=== PATIENT | female | born 1970 | race Caucasian/White ===

== ENCOUNTER 2020-01-04 01:29 | Inpatient (IN) | payer SELFPAY ==
[~2020-01-04] VITALS: Ht 167 cm; Wt 77.8 kg
[2020-01-04] VITALS (15 sets, daily range): BP systolic 89–116; BP diastolic 39–78
[~2020-01-04 01:29] MED LIST: FAMOTIDINE 20MG/2ML IV (PEPCID) IV ONE; ONDANSETRON 4 MG/2 ML (SDV) Z0FRAN IV ONE; PANTOPRAZOLE 40 MG (PROTONIX) VIAL IV ONE; fentaNYL INJECTION 100 MCG/2 ML AMP IV ONE
--- OUTSIDE RECORDS SUMMARY | 2020-01-04 01:36 | XMS REPORT | Continuity of Care Document ---
Author Organization Unknown Address Unknown Phone Unavailable Allergies Active Description Code Type Severity Reaction Onset Reported/Identified Relationship to Patient Clinical Status Yes adhesive [id number] Drug Allergy Unknown N/A 09/16/2019 Yes Iodinated Contrast Media [id number] Drug Allergy Unknown N/A 09/16/2019 Yes ketorolac [id number] Drug Allergy Unknown N/A 09/16/[id number] ug Allergy Unknown N/A 09/16/2019 Yes morphine [id number] Drug Allergy Unknown N/A 09/16/2019 Yes NSAIDS (Non-Steroidal Anti-Inflamma [id number] Drug Allergy Unknown N/A 09/16/2019 Yes prochlorperazine [id number] Drug Allergy Unknown N/A 09/16/2019 Yes Sulfa (Sulfonamide Antibiotics) [id number] Drug Allergy Unknown N/A 019 Yes Iodinated Contrast Media [id number] Drug Allergy Severe N/A 09/17/2019 Yes adhesive [id number] Drug Allergy Moderate N/A 09/17/2019 Yes ketorolac [id number] Drug Allergy Moderate N/A 09/17/[id number] ug Allergy Moderate N/A 09/17/2019 Yes morphine [id number] Drug Allergy Moderate N/A 09/17/2019 Yes NSAIDS (Non-Steroidal Anti-Inflamma [id number] Drug Allergy Moderate N/A 09/17/2019 Yes prochlorperazine [id number] Drug Allergy Moderate N/A 09/17/2019 Yes Sulfa (Sulfonamide Antibiotics) [id number] Drug Allergy Moderate N/A 2018 Medications There is no data. Problems There is no data. Procedures There is no data. Results Test Result Range Urine Culture, Routine - 09/16/19 21:54 Urine Culture, Routine Final report . Result - 09/16/19 21:54 Result 1 Comment . Encounters ACCT No. Visit Date/Time Discharge Status Pt. Type Provider Facility Loc./Unit Complaint [id number] 09/16/2019 22:50:00 019 17:21:00 DIS Inpatient YOVANNY MCKINLEY, [address] ACUTE UPPER GI BLEED,ANEMIA,ABD PAIN
[2020-01-04] MEDS ORDERED: HYDROmorphone 2 MG/ML VIAL (DILAUDID) IV ONE ×2 (02:23→04:00)
[2020-01-04] MEDS ORDERED: NS IV 500 ML 500 ML IV ONE (02:38)
[2020-01-04] MEDS ORDERED: LIDOCAINE 2% VISCOUS 15 ML UDC PO ONE (02:45)
[2020-01-04] MEDS ORDERED: PROMETHAZINE INJ 25 MG/ML (PHENERGAN) AMP IVP ONE (02:45)
[2020-01-04] MEDS ORDERED: ANTACID SUSP 30 ML UDC (MYLANTA) PO ONE (02:45)
[2020-01-04] MEDS ORDERED: SCOPOLAMINE 1.5 MG (TRANSDERM-SCOP) PATCH TD ONE (02:45)
[2020-01-04] MEDS ORDERED: PIPERACILLIN SODIUM/TAZOBACTAM 4.5 GM in NS (IVPB) 100 ML IV ONE (03:00)
[2020-01-04 03:04] LABS: PROTHROMBIN TIME PATIENT 13.3 SEC (12.2-14.7)
[2020-01-04 03:05] LABS: HEMATOCRIT 35 % (35-52); HEMOGLOBIN 11.1 G/DL (11.5-16.0); MEAN CORPUSCULAR HEMOGLOBIN 25 PG (25-34); WHITE BLOOD COUNT 5.9 10^3/uL (4.3-11.0)
[2020-01-04 03:06] LABS: BASOPHILS % (AUTO) 1 % (0-10); EOSINOPHILS # (AUTO) 0.1 10^3/uL (0.0-0.3); EOSINOPHILS % (AUTO) 2 % (0-10); LYMPHOCYTES # (AUTO) 1.6 X 10^3 (1.0-4.0); LYMPHOCYTES % (AUTO) 27 % (12-44); MEAN CORPUSCULAR HGB CONC 31 G/DL (32-36); MEAN CORPUSCULAR VOLUME 80 FL (80-99); MEAN PLATELET VOLUME 9.4 FL (7.4-10.4); MONOCYTES # (AUTO) 0.6 X 10^3 (0.0-1.0); MONOCYTES % (AUTO) 10 % (0-12); NEUTROPHILS # (AUTO) 3.6 X 10^3 (1.8-7.8); NEUTROPHILS % (AUTO) 61 % (42-75); PLATELET COUNT 547 10^3/uL (130-400); RED CELL DISTRIBUTION WIDTH 17.7 % (10.0-14.5)
[2020-01-04 03:07] LABS: BUN/CREATININE RATIO 18; CARBON DIOXIDE 25 MMOL/L (21-32); CHLORIDE 101 MMOL/L (98-107); CREATININE SERUM 0.74 MG/DL (0.60-1.30); GFR ESTIMATED > 60; POTASSIUM 3.2 MMOL/L (3.6-5.0); SODIUM 139 MMOL/L (135-145)
[2020-01-04 03:08] LABS: ALANINE AMINOTRANSFERASE 9 U/L (0-55); ALKALINE PHOSPHATASE 85 U/L (40-136); BILIRUBIN,TOTAL 0.2 MG/DL (0.1-1.0); CALCIUM 9.9 MG/DL (8.5-10.1); GLUCOSE 103 MG/DL (70-105); LIPASE 81 U/L (8-78); TOTAL PROTEIN 6.9 GM/DL (6.4-8.2)
--- OUTSIDE RECORDS SUMMARY | 2020-01-04 03:19 | XMS REPORT | Continuity of Care Document ---
Author Organization Unknown Address Unknown Phone Unavailable Allergies Active Description Code Type Severity Reaction Onset Reported/Identified Relationship to Patient Clinical Status Yes adhesive [id number] Drug Allergy Unknown N/A 09/16/2019 Yes Iodinated Contrast Media [id number] Drug Allergy Unknown N/A 09/16/2019 Yes ketorolac [id number] Drug Allergy Unknown N/A 09/16/[id number] ug Allergy Unknown N/A 09/16/2019 Yes morphine [id number] Drug Allergy Unknown N/A 09/16/2019 Yes NSAIDS (Non-Steroidal Anti-Inflamma [id number] Drug Allergy Unknown N/A 09/16/2019 Yes prochlorperazine [id number] Drug Allergy Unknown N/A 09/16/2019 Yes Sulfa (Sulfonamide Antibiotics) [id number] 0491 Drug Allergy Unknown N/A 019 Yes Iodinated Contrast Media [id number] Drug Allergy Severe N/A 09/17/2019 Yes adhesive [id number] Drug Allergy Moderate N/A 09/17/2019 Yes ketorolac [id number] Drug Allergy Moderate N/A 09/17/[id number] ug Allergy Moderate N/A 09/17/2019 Yes morphine [id number] Drug Allergy Moderate N/A 09/17/2019 Yes NSAIDS (Non-Steroidal Anti-Inflamma [id number] Drug Allergy Moderate N/A 09/17/2019 Yes prochlorperazine [id number] Drug Allergy Moderate N/A 09/17/2019 Yes Sulfa (Sulfonamide Antibiotics) [id number] 0491 Drug Allergy Moderate N/A 2018 Medications There is no data. Problems There is no data. Procedures There is no data. Results Test Result Range Urine Culture, Routine - 09/16/19 21:54 Urine Culture, Routine Final report . Result - 09/16/19 21:54 Result 1 Comment . Encounters ACCT No. Visit Date/Time Discharge Status Pt. Type Provider Facility Loc./Unit Complaint [id number] 09/16/2019 22:50:00 019 17:21:00 DIS Inpatient YOVANNY MCKINLEY, [address] ACUTE UPPER GI BLEED,ANEMIA,ABD PAIN
--- NOTE | 2020-01-04 03:31 | ED Abdominal Pain ---
General Chief Complaint: Abdominal/GI Problems Stated Complaint: HEMATEMESIS, UPPER ABDOMINAL PAIN Source of Information: Patient Exam Limitations: No Limitations History of Present Illness Date Seen by Provider: Jan 04, 2020 Time Seen by Provider: 00:42 Initial Comments This 49-year-old woman presents to the emergency room with severe upper abdominal pain and hematemesis that started about 4 hours ago. She had recently been visiting her father in [place] when she developed bleeding ulcers. She required hospitalization. She had cauterization therapy with endoscopy but had rebound pain and bleeding. She ultimately required an open surgery. Her impression was that the care was not very good and she had a significant language barrier that adversely impacted her care. Pain abruptly escalated and she started vomiting tonight. She denies use of blood thinning medications. She has Gitelman syndrome. Allergies and Home Medications Allergies Coded Allergies: Iodinated Contrast Media (Verified Allergy, Unknown, Hives, 01/04/20) NSAIDS (Non-Steroidal Anti-Inflamma (Verified Allergy, Unknown, Bleeding, 01/04/20) Sulfa (Sulfonamide Antibiotics) (Verified Allergy, Unknown, Rash, 01/04/20) adhesive (Verified Allergy, Unknown, Rash, 01/04/20) ketorolac (Verified Allergy, Unknown, Rash, 01/04/20) metoclopramide (Verified Adverse Reaction, Unknown, Anxiety and Panic, 01/04/20) morphine (Verified Adverse Reaction, Unknown, Vomiting, 01/04/20) prochlorperazine (Verified Adverse Reaction, Unknown, Anxiety and panic, 01/04/20) Patient Home Medication List Home Medication List Reviewed: Yes Review of Systems Review of Systems Constitutional: no symptoms reported EENTM: No Symptoms Reported Respiratory: No Symptoms Reported Cardiovascular: No Symptoms Reported Gastrointestinal: See HPI Genitourinary: See HPI Musculoskeletal: no symptoms reported Skin: no symptoms reported Psychiatric/Neurological: No Symptoms Reported Endocrine: No Symptoms Reported Hematologic/Lymphatic: See HPI Past Rcoebme-Rrwubf-Uygdlw Hx Past Med/Social Hx: Reviewed and Corrections made Patient Social History Recent Foreign Travel: Yes ([place]) Contact w/Someone Who Travel: Yes ([place]) Past Medical History Surgeries: Yes Abdominal (gastric ulcer repair and endoscopies), Gallbladder, Vascular Surgery (IVC filter) Respiratory: Yes Pulmonary Embolism (2011) Cardiac: No Neurological: Yes Stroke (2006) : No Genitourinary: Yes (Gitelman syndrome) Gastrointestinal: Yes Gastrointestinal Bleed (bleeding gastric ulcers), Ulcer, Gall Bladder Disease Musculoskeletal: No Endocrine: No HEENT: No Cancer: No Psychosocial: Yes Depression Physical Exam Vital Signs Capillary Refill : Height/Weight/BMI Height: '" Weight: lbs. oz. kg; BMI Method: General Appearance: WD/WN, moderate distress HEENT: PERRL/EOMI, normal ENT inspection, pharynx normal Neck: normal inspection Respiratory: lungs clear, normal breath sounds, no respiratory distress, no accessory muscle use Cardiovascular: regular rate, rhythm, no edema, no murmur Gastrointestinal: normal bowel sounds, soft, tenderness (moderate to severe tenderness in the left upper quadrant) Extremities: normal inspection, no pedal edema Neurologic/Psychiatric: designated broker II-XII nml as tested, no motor/sensory deficits, alert, normal mood/affect, oriented x 3 Skin: normal color, warm/dry Progress/Results/Core Measures Results/Orders Lab Results Laboratory Tests Test 01/04/20 01:20 Range/Units White Blood Count 5.9 4.3-11.0 10^3/uL Red Blood Count 4.43 4.35-5.85 10^6/uL Hemoglobin 11.1 L 11.5-16.0 G/DL Hematocrit 35 35-52 % Mean Corpuscular Volume 80 80-99 FL Mean Corpuscular Hemoglobin 25 25-34 PG Mean Corpuscular Hemoglobin Concent 31 L 32-36 G/DL Red Cell Distribution Width 17.7 H 10.0-14.5 % Platelet Count 547 H 130-400 10^3/uL Mean Platelet Volume 9.4 7.4-10.4 FL Neutrophils (%) (Auto) 61 42-75 % Lymphocytes (%) (Auto) 27 12-44 % Monocytes (%) (Auto) 10 0-12 % Eosinophils (%) (Auto) 2 0-10 % Basophils (%) (Auto) 1 0-10 % Neutrophils # (Auto) 3.6 1.8-7.8 X 10^3 Lymphocytes # (Auto) 1.6 1.0-4.0 X 10^3 Monocytes # (Auto) 0.6 0.0-1.0 X 10^3 Eosinophils # (Auto) 0.1 0.0-0.3 10^3/uL Basophils # (Auto) 0.0 0.0-0.1 10^3/uL Prothrombin Time 13.3 12.2-14.7 SEC INR Comment 1.0 0.8-1.4 Activated Partial Thromboplast Time 38 H 24-35 SEC Sodium Level 139 135-145 MMOL/L Potassium Level 3.2 L 3.6-5.0 MMOL/L Chloride Level 101 98-107 MMOL/L Carbon Dioxide Level 25 21-32 MMOL/L Anion Gap 13 5-14 MMOL/L Blood Urea Nitrogen 13 7-18 MG/DL Creatinine 0.74 0.60-1.30 MG/DL Estimat Glomerular Filtration Rate > 60 BUN/Creatinine Ratio 18 Glucose Level 103 70-105 MG/DL Calcium Level 9.9 8.5-10.1 MG/DL Corrected Calcium 9.9 8.5-10.1 MG/DL Total Bilirubin 0.2 0.1-1.0 MG/DL Aspartate Amino Transf (AST/SGOT) 12 5-34 U/L Alanine Aminotransferase (ALT/SGPT) 9 0-55 U/L Alkaline Phosphatase 85 40-136 U/L Total Protein 6.9 6.4-8.2 GM/DL Albumin 4.0 3.2-4.5 GM/DL Lipase 81 H 8-78 U/L Serum Test, Qualitative NEGATIVE NEGATIVE My Orders Kaylan - ALEXANDRA MONTALVO MD Ct Abdomen/Pelvis Wo (01/04/20 ) Scopolamine Patch (Transderm-Scop Patch) (01/04/20 02:45) Lidocaine 2% Viscous 15 Ml (Xylocaine Vi (01/04/20 02:45) Antacid Suspension (Mylanta Suspension (01/04/20 02:45) Promethazine Injection (Phenergan Injec (01/04/20 02:45) Ns Iv 500 Ml (Sodium Chloride 0.9%) (01/04/20 02:38) Cbc With Automated Diff (01/04/20 02:47) Comprehensive Metabolic Panel (01/04/20 02:47) Hcg,Qualitative Serum (01/04/20 02:47) Lipase (01/04/20 02:47) Protime With Inr (01/04/20 02:47) Partial Thromboplastin Time (01/04/20 02:47) Ua Culture If Indicated (01/04/20 02:47) Red Cells Leukocytes Reduced (01/04/20 02:47) Type And Screen (01/04/20 02:47) Piperacillin Sodium/Tazobactam (Zosyn Vi (01/04/20 03:00) Medications Given in ED Current Medications Medications Dose Ordered Sig/Robbie Route Start Time Stop Time Status Last Admin Dose Admin Al Hydrox/Mg Hydrox/Simethicone 30 ml ONCE ONCE PO 01/04/20 02:45 01/04/20 02:46 DC 01/04/20 03:27 30 ML Lidocaine HCl 15 ml ONCE ONCE PO 01/04/20 02:45 01/04/20 02:46 DC 01/04/20 03:28 15 ML Piperacillin Sod/ Tazobactam Sod 4.5 gm/Sodium Chloride 100 ml @ 200 mls/hr ONCE ONCE IV 01/04/20 03:00 01/04/20 03:29 DC 01/04/20 03:28 200 MLS/HR Promethazine HCl 25 mg ONCE ONCE IVP 01/04/20 02:45 01/04/20 02:46 DC 01/04/20 02:57 25 MG Sodium Chloride 500 ml @ 0 mls/hr Q0M ONCE IV 01/04/20 02:38 01/04/20 02:40 DC 01/04/20 02:58 999 MLS/HR Progress Progress Note : Progress Note Patient seen and examined. Labs were reviewed. She is not yet significantly anemic. She has had a few episodes of bloody emesis, probably less than 100 mL. She was treated with Protonix 80 mg, Pepcid 20 mg, and Zofran. She was given Phenergan and a 500 mL normal saline bolus for rebound nausea. We are trialing a GI cocktail as well. 2 units of blood are being crossmatched on reserve because of continued bleeding. Case was discussed with Dr. Smith who recommended a clear liquid diet, Carafate, and a Protonix drip. She will be admitted to the ICU for the morning for close monitoring. CT suggested colitis. Zosyn was ordered as a precaution based on that finding. Fentanyl was initially used for pain. Dilaudid was given for rebound pain. Patient states Dilaudid does not give her headache like fentanyl does. Diagnostic Imaging Diagonstic Imaging: CT Plain Films/CT/US/NM/MRI: abdomen, pelvis Comments CT abdomen and pelvis viewed by me and report from stat rad reviewed. Findings are suspicious for colitis or infectious inflammatory etiology. No other complicating factors. No free air to indicate perforation. Departure Communication (Admissions) Time/Spoke to Admitting Phy: 02:25 Dr. Smith Impression Primary Impression: Hematemesis Qualified Codes: K92.0 - Hematemesis Additional Impressions: Left upper quadrant pain Colitis Disposition: ADMITTED INPATIENT Condition: Stable Admissions Decision to Admit Reason: Admit from ER (General) Decision to Admit/Date: Jan 04, 2020 Time/Decision to Admit Time: 01:00 Departure-Patient Inst. Referrals: NO,LOCAL PHYSICIAN (PCP/Family) Primary Care Physician ALEXANDRA MONTALVO MD Jan 04, 2020 03:31
[2020-01-04] MEDS ORDERED: LACTATED RINGERS 1,000 ML IV SCH (04:30)
[2020-01-04] MEDS ORDERED: PANTOPRAZOLE DRIP 200 MG/NS 100 ML IV SCH ×2 (04:30)
[2020-01-04 04:41] LABS: MAGNESIUM 1.2 MG/DL (1.6-2.4)
[2020-01-04] MEDS: HYDROmorphone 2 MG/ML VIAL (DILAUDID) IV PRN ×5 (05:02→11:34)
[2020-01-04] MEDS: ONDANSETRON 4 MG/2 ML (SDV) Z0FRAN IV PRN ×3 (05:02→15:18)
[2020-01-04] MEDS ORDERED: MAGNESIUM 1 GM/100 ML IVPB 200 ML IV ONE (05:42)
[2020-01-04] MEDS ORDERED: POTASSIUM CL 10MEQ/50ML IVPB 100 ML IV ONE ×2 (05:42→05:46)
[2020-01-04] MEDS: MAGNESIUM 1 GM/100 ML IVPB 100 ML IV SCH ×2 (05:55→06:56)
[2020-01-04] MEDS ORDERED: POTASSIUM CL 10MEQ/50ML IVPB 50 ML IV SCH (06:00)
[2020-01-04] MEDS ORDERED: KCL 20 MEQ TAB (K-DUR) PO SCH (06:00)
[2020-01-04] MEDS ORDERED: MAGNESIUM 1 GM/100 ML IVPB 100 ML IV SCH (06:00)
[2020-01-04] MEDS: POTASSIUM CL 10MEQ/50ML IVPB 50 ML IV SCH ×3 (06:05→06:56)
--- NOTE | 2020-01-04 06:16 | Diagnostic Imaging Report ---
PROCEDURE: CT abdomen and pelvis without contrast. TECHNIQUE: Multiple contiguous axial images were obtained through the abdomen and pelvis without the use of intravenous contrast. Auto Exposure Controls were utilized during the CT exam to meet ALARA standards for radiation dose reduction. INDICATION: Abdominal pain with nausea and vomiting. No prior examinations are available for comparison. FINDINGS: The heart size is normal. The lung bases are clear. Liver is normal in size without focal lesions. Gallbladder surgically absent. There is no biliary duct dilatation. The spleen is unremarkable. Pancreas and adrenal glands are unremarkable. There are homogeneously hyperdense round lesions in the kidneys bilaterally, likely reflecting hemorrhagic cysts. There is no evidence of nephrolithiasis or obstructive uropathy. IVC filter in place. Aorta is nonaneurysmal. Bowel gas pattern is nonspecific. There are areas of mucosal thickening in the descending colon and sigmoid colon suspect for colitis. There is no free air. There is no pelvic mass, adenopathy or free fluid. There are degenerative changes in the spine. IMPRESSION: Findings suspect for colitis either infectious or inflammatory involving the descending colon and sigmoid colon. Hyperdense renal lesions likely hemorrhagic cysts. This could be confirmed with ultrasound. No other acute abnormality in the abdomen or pelvis. Dictated by: Dictated on workstation # [id number]
--- NOTE | 2020-01-04 06:37 | NUR ---
PT HAS LEFT CHEST POWER PORT, ACCESSED BY ER. IV PROTONIX DRIP NOT COMPATIBLE WITH ZOSYN AND MAGNESIUM. THIS RN ATTEMPTED 2ND IV LINE. ATTEMPT WAS UNSUCCESSFUL. PT STATES "NOBODY WILL BE ABLE TO GET ME. I AM AN IMPOSSIBLE STICK." THIS RN NOTIFIED K[facility]O OF INCOMPATIBILITY OF IV MEDS AND LACK OF IV ACCESS. ORDERS TO CHANGE PROTONIX DRIP TO 40MG PROTONIX BID IVP.
[2020-01-04] MEDS ORDERED: diphenhydrAMINE 50 MG/ML INJ (BENADRYL) ONE (06:40)
[2020-01-04] MEDS: diphenhydrAMINE 50 MG/ML INJ (BENADRYL) IVP PRN ×4 (06:47→20:38)
[2020-01-04] MEDS: FAMOTIDINE 20MG/2ML IV (PEPCID) IV SCH ×2 (08:13→20:28)
[2020-01-04] MEDS: SUCRALFATE 1 GM (CARAFATE) TAB PO SCH ×4 (08:13→20:21)
[2020-01-04] MEDS: PANTOPRAZOLE 40 MG (PROTONIX) VIAL IV SCH ×2 (08:13→20:27)
[2020-01-04] MEDS ORDERED: PIPERACILLIN/TAZO 4.5 GM/NS 100 ML IV SCH ×2 (09:00)
--- NOTE | 2020-01-04 10:05 | NUR ---
NEW TELEPHONE ORDERS RECEIVED FROM DR AWRD, ALL ORDERS READ BACK AND VERIFIED.
--- NOTE | 2020-01-04 11:13 | Consultation - Hospitalist ---
HPI History of Present Illness: HPI/Chief Complaint Pt is a 49yoCF with a PMH of Gitelman Syndrome who presented to the ER due to hematemesis. She reports that she was just in [place] to visit her dad. She states she flew down to [place] on 12/23 and then drove [place] the border with her aunt and uncle. They drove back roughly 1 week ago. While she was in [place] she developed hematemesis there and underwent open abdominal surgery for what sounds like peptic ulcer disease. This was roughly 1 week ago (4 days before they drove back). She states her incision is healing well and she had been feeling better and staying with her aunt and uncle because she has felt too fatigued to drive back. She also complains of loose stools. Last night she vomited up 1-1.5 cups per her report of blood and developed severe abdominal pain prompting her to see care in the ER. CT scan was done which revealed colitis. She was admitted to surgery and I am consulted for medical management. She denies any respiratory symptoms or fever. Of note she has a history in 2006 of surgery for achalasia that resulted in j tube placement for enteral feeds, 1 year long hospital stay and ~100lb weight loss. She has since graduated from her J-tube and is on Keppra for vagal nerve dysfunction and normally maintains her own nutrition orally. Source: patient Exam Limitations: no limitations Date Seen 01/04/20 Attending Physician Goldy Smith MD PCP No,Local Physician Referring Physician Dr Smith Date of Admission Jan 04, 2020 at 03:15 Home Medications & Allergies Home Medications Reviewed patient Home Medication Reconciliation performed by pharmacy medication reconciliations optical coating technician and/or nursing. Patients Allergies have been reviewed. Allergies Allergies Coded Allergies Iodinated Contrast Media (Verified Allergy, Unknown, Hives, 01/04/20) NSAIDS (Non-Steroidal Anti-Inflamma (Verified Allergy, Unknown, Bleeding, 01/04/20) Sulfa (Sulfonamide Antibiotics) (Verified Allergy, Unknown, Rash, 01/04/20) adhesive (Verified Allergy, Unknown, Rash, 01/04/20) ketorolac (Verified Allergy, Unknown, Rash, 01/04/20) metoclopramide (Verified Adverse Reaction, Unknown, Anxiety and Panic, 01/04/20) morphine (Verified Adverse Reaction, Unknown, Vomiting, 01/04/20) prochlorperazine (Verified Adverse Reaction, Unknown, Anxiety and panic, 01/04/20) Past Ywivbbc-Nchwxm-Ewpcno Hx Past Med/Social Hx: Reviewed and Corrections made Patient Social History Alcohol Use: Denies Use Recreational Drug Use: No Smoking Status: Never a Smoker Recent Foreign Travel: Yes ([place]) Contact w/other who traveled: Yes ([place]) Recent Hopitalizations: Yes ([place]- 12-26-19) Recent Infectious Disease Expo: No Immunizations Up To Date Tetanus Booster (TDap): Unknown Pediatric: Yes Date of Influenza Vaccine: Jul 08, 2019 Past Medical History Surgeries: Abdominal (gastric ulcer repair and endoscopies), Gallbladder, Vascular Surgery (IVC filter) Neurological: Stroke (2006) : No Genitourinary: Kidney Stones Gastrointestinal: Gastrointestinal Bleed (bleeding gastric ulcers), Ulcer, Gall Bladder Disease Psychosocial: Depression Review of Systems Constitutional: No chills, No fever; malaise EENTM: no symptoms reported Respiratory: No cough, No short of breath Cardiovascular: No chest pain, No edema, No palpitations Gastrointestinal: abdominal pain, diarrhea, hematemesis, nausea, vomiting Genitourinary: no symptoms reported Musculoskeletal: no symptoms reported Skin: no symptoms reported Psychiatric/Neurological: No Symptoms Reported Physical Exam Physical Exam Vital Signs Vital Signs - First Documented 01/04/20 01:29 Temp 36.9 Pulse 114 Resp 20 B/P (MAP) 105/80 (88) Pulse Ox 98 O2 Delivery Room Air Capillary Refill : Less Than 3 Seconds Height, Weight, BMI Height: '" Weight: lbs. oz. kg; 28.00 BMI Method: General Appearance: No Apparent Distress, WD/WN HEENT: PERRL/EOMI, Moist Mucous Membranes; No Scleral Icterus (L), No Scleral Icterus (R) Neck: Normal Inspection, Supple Respiratory: Lungs Clear, No Accessory Muscle Use, No Respiratory Distress Cardiovascular: Regular Rate, Rhythm, No Murmur Gastrointestinal: Normal Bowel Sounds, Non Tender, Soft; No Distended, No Guarding, No Rebound Extremity: Normal Capillary Refill, No Calf Tenderness, No Pedal Edema Neurologic/Psychiatric: Alert, Oriented x3, Normal Mood/Affect Skin: Normal Color, Warm/Dry, Tattoos/Piercings Results Results/Procedures Labs Laboratory Tests 01/04/20 01:20 Patient resulted labs reviewed. Imaging: Reviewed Imaging Report Imaging Date of Exam:01/04/20 CT ABDOMEN/PELVIS WO PROCEDURE: CT abdomen and pelvis without contrast. TECHNIQUE: Multiple contiguous axial images were obtained through the abdomen and pelvis without the use of intravenous contrast. Auto Exposure Controls were utilized during the CT exam to meet ALARA standards for radiation dose reduction. INDICATION: Abdominal pain with nausea and vomiting. No prior examinations are available for comparison. FINDINGS: The heart size is normal. The lung bases are clear. Liver is normal in size without focal lesions. Gallbladder surgically absent. There is no biliary duct dilatation. The spleen is unremarkable. Pancreas and adrenal glands are unremarkable. There are homogeneously hyperdense round lesions in the kidneys bilaterally, likely reflecting hemorrhagic cysts. There is no evidence of nephrolithiasis or obstructive uropathy. IVC filter in place. Aorta is nonaneurysmal. Bowel gas pattern is nonspecific. There are areas of mucosal thickening in the descending colon and sigmoid colon suspect for colitis. There is no free air. There is no pelvic mass, adenopathy or free fluid. There are degenerative changes in the spine. IMPRESSION: Findings suspect for colitis either infectious or inflammatory involving the descending colon and sigmoid colon. Hyperdense renal lesions likely hemorrhagic cysts. This could be confirmed with ultrasound. Assessment/Plan Assessment and Plan Assess & Plan/Chief Complaint Colitis Hematemesis Management per primary Continue serial H/H Continue abx Dilaudid for pain c diff pending CLD LR at 125ml/hr Protonix, Famotidine, and Carafate Gitelman Syndrome Hypokalemia Hypomagnesemia Continue potassium replacement Resume home meds when able to tolerate a diet better Travel history COVID testing pending Clinical Quality Measures DVT/VTE Risk/Contraindication: Risk Factor Score Per Nursin RFS Level Per Nursing on Admit: 4+=Very High ADAMS LOPEZ MD Jan 04, 2020 11:13
[2020-01-04] MEDS ORDERED: HYDROcodone/APAP 7.5 MG/325 MG (LORTAB, LORCET PLUS) TABLET PO PRN ×2 (11:45→16:45)
--- NOTE | 2020-01-04 12:16 | HISTORY AND PHYSICAL ---
DATE OF SERVICE: HISTORY OF PRESENT ILLNESS: The patient is a 49-year-old female, who presented to the Emergency Department with left upper abdominal quadrant pain as well as nausea and vomiting and noticing blood in her emesis. She has a long history of first encompassing a recent trip to [place] to visit her father, who lives on the [facility]. She initially flew from her residence an hour away from [place] to [place] and drilled from [place] to [place]. She reports that she developed a significant hematemesis in [place] and underwent surgery for what sounds to be a bleeding gastric ulcer. She reports that she has had a longstanding history of peptic ulcer disease and has been on different acid reduction medications in the past. She has also had previous EGDs and states that she has been tested for H. pylori, which has been negative. She also reports a history of achalasia and underwent a laparoscopic Heller myotomy as well as a partial fundoplication. She is not 100% sure of what type of surgery they did in [place]; however, states that she was admitted for approximately five days and she does have an upper midline laparotomy incision and it appears that she did have a gastrotomy resection of bleeder and oversewing. Upon admission, she did have pain in the left upper abdominal quadrant. 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 Hemoglobin has also been stable. CT scan was reviewed and it appears that she does have proximal descending colonic colitis, most likely secondary from her recent travels as well as previous antibiotics during her surgery in [place] and we will treat her empirically for Clostridium difficile as well as other bacterial overgrowth. PAST MEDICAL HISTORY: Gitelman syndrome, GI peptic ulcer disease, history of achalasia. History of PE. PAST SURGICAL HISTORY: Laparoscopic Heller myotomy and partial wrap, IVC filter placement, laparotomy, gastrotomy and hemostatic control. ALLERGIES: IODINATED CONTRAST and SULFA, ADHESIVE TAPE, KETOROLAC, METOCLOPRAMIDE, MORPHINE and PROCHLORPERAZINE. MEDICATIONS: None. SOCIAL HISTORY: Negative smoking and negative alcohol. FAMILY HISTORY: Noncontributory. REVIEW OF SYSTEMS: This is a well-nourished female currently in no acute distress. She is not experiencing any shortness of breath or difficulty breathing. No chest pain, palpitations or diaphoresis. Intermittent episodes of nausea, no vomiting and tolerating clear liquid diet. She did have loose bowel movement earlier today. No red blood per rectum and no dark tarry stools. No fever, chills, no recent inadvertent weight loss. All other review of systems are negative. PHYSICAL EXAMINATION: VITAL SIGNS: Temperature 36.3, blood pressure 116/78, pulse 91, respirations 17 and pulse ox 97% on room air. CHEST: Clear. Good breath sounds bilaterally. HEART: Regular and no murmurs. EXTREMITIES: No lower extremity edema, negative Homans sign. HEENT: No scleral icterus. NECK: No cervical lymphadenopathy. ABDOMEN: Soft and nondistended. There is pain in the left upper abdominal quadrant. There were no palpable masses. The wound looks clean, dry and intact with no hernias. SKIN: Warm and dry. LABORATORY DATA: WBC 5.9, hemoglobin 11.1, hematocrit 35 and platelets 547. ASSESSMENT AND PLAN: A 49-year-old female with colitis, most likely secondary to bacterial overgrowth from previous laparotomy, gastrotomy and bleeding oversewn as well as recent travel. We will send her stool for Clostridium difficile; however, empirically treated with ciprofloxacin as well as Flagyl 500 mg on a t.i.d. basis. When she has adequate pain control, tolerating diet, we will discharge her home and have her follow up with her primary care physician. Job ID: [id number] DocumentID: [id number] Dictated Date: 01/04/2020 12:01:26 Outside Contractor Sales Date: 01/04/2020 12:15:49 Dictated By: MARGOTH WARD MD
[2020-01-04] MEDS: metroNIDAZOLE 500 MG (FLAGYL) TAB PO SCH ×2 (13:10→20:21)
[2020-01-04] MEDS ORDERED: HYDROmorphone 2 MG/ML VIAL (DILAUDID) IV PRN (13:15)
[2020-01-04] MEDS: PROMETHAZINE INJ 25 MG/ML (PHENERGAN) AMP IV PRN (13:30)
--- NOTE | 2020-01-04 13:43 | NUR ---
LORTAB PULLED AND NOT GIVEN PT HAD APPROXIMATELY 50 ML OF BLOODY EMESIS. LORTAB WASTED IN PROPER CONTAINER AND WITNESSED BY Agus BELL RN.
--- NOTE | 2020-01-04 14:18 | NUR ---
RECEIVED FROM ICU, ALERT, ORIENTED TO ROOM, INSTRUCTED ON ISOLATION, CALL LIGHT WITHIN REACH, [place] WITHOUT REDNESS OR SWELLING, DENIES SOB, AFEBRILE, PATIENT C/O NAUSEA. AND ABD PAIN, ABD SOFT, BOWEL SOUNDS PRESENT
--- NOTE | 2020-01-04 14:42 | NUR ---
1415 PT TRANSFERRED TO ROOM 432 VIA WC ACCOMPANIED BY ALLA RN AND Agus BOYER RN. ALL PPE TRANSFERRED TO ROOM ALONG WITH ALL PERSONAL BELONGINGS. REPORT GIVEN TO JD PRIOR TO TRANSFER.
--- NOTE | 2020-01-04 16:24 | NUR ---
PATIENT STATES DILAUDID EVERY FOURS HOURS DOES NOT CONTROL HER PAIN, PATIENT VOMITED RED COLOR EMESIS AND VOMITED UP THE LORTABS GIVEN EARLIER, DR WARD NOTIFIED.
[2020-01-04] MEDS: HYDROmorphone 2 MG/ML VIAL (DILAUDID) IVP PRN ×2 (17:00→20:36)
[2020-01-04] MEDS: CIPROFLOXACIN IV 400MG/200ML 200 ML IV SCH (20:21)
[2020-01-05] MEDS: HYDROmorphone 2 MG/ML VIAL (DILAUDID) IVP PRN ×6 (00:18→21:32)
[2020-01-05] MEDS: PROMETHAZINE INJ 25 MG/ML (PHENERGAN) AMP IV PRN ×2 (00:18→21:32)
[2020-01-05 00:19] VITALS: BP 120/75
[2020-01-05 04:00] VITALS: BP 118/74
[2020-01-05] MEDS: diphenhydrAMINE 50 MG/ML INJ (BENADRYL) IVP PRN ×3 (04:19→14:12)
[2020-01-05 04:55] LABS: BUN/CREATININE RATIO 12; CALCIUM 7.5 MG/DL (8.5-10.1); CARBON DIOXIDE 26 MMOL/L (21-32); CHLORIDE 105 MMOL/L (98-107); CREATININE SERUM 0.66 MG/DL (0.60-1.30); GFR ESTIMATED > 60; GLUCOSE 91 MG/DL (70-105); SODIUM 141 MMOL/L (135-145)
[2020-01-05 05:07] LABS: BASOPHILS % (AUTO) 1 % (0-10); EOSINOPHILS # (AUTO) 0.2 10^3/uL (0.0-0.3); EOSINOPHILS % (AUTO) 5 % (0-10); HEMATOCRIT 28 % (35-52); HEMOGLOBIN 8.6 G/DL (11.5-16.0); LYMPHOCYTES % (AUTO) 25 % (12-44); MEAN CORPUSCULAR HEMOGLOBIN 25 PG (25-34); MEAN CORPUSCULAR HGB CONC 31 G/DL (32-36); MEAN CORPUSCULAR VOLUME 83 FL (80-99); MEAN PLATELET VOLUME 9.5 FL (7.4-10.4); MONOCYTES # (AUTO) 0.6 X 10^3 (0.0-1.0); MONOCYTES % (AUTO) 14 % (0-12); NEUTROPHILS # (AUTO) 2.3 X 10^3 (1.8-7.8); NEUTROPHILS % (AUTO) 55 % (42-75); PLATELET COUNT 305 10^3/uL (130-400); RED CELL DISTRIBUTION WIDTH 17.6 % (10.0-14.5); WHITE BLOOD COUNT 4.2 10^3/uL (4.3-11.0)
[2020-01-05] MEDS: CIPROFLOXACIN IV 400MG/200ML 200 ML IV SCH ×2 (09:30→20:22)
[2020-01-05] MEDS: PANTOPRAZOLE 40 MG (PROTONIX) VIAL IV SCH ×2 (09:30→20:22)
[2020-01-05] MEDS: metroNIDAZOLE 500 MG (FLAGYL) TAB PO SCH ×3 (09:31→20:22)
[2020-01-05] MEDS: SUCRALFATE 1 GM (CARAFATE) TAB PO SCH ×4 (09:37→20:22)
[2020-01-05] MEDS: FAMOTIDINE 20MG/2ML IV (PEPCID) IV SCH ×2 (09:37→20:21)
[2020-01-05 09:53] VITALS: BP 101/66
[2020-01-05] MEDS ORDERED: KCL 20 MEQ TAB (K-DUR) PO NR (10:00)
[2020-01-05] MEDS ORDERED: NS IV 1000 ML 1,000 ML ONE (10:46)
[2020-01-05] MEDS ORDERED: NS IV 1000 ML 1,000 ML IV ONE (11:00)
[2020-01-05] MEDS: MAGNESIUM 1 GM/100 ML IVPB 100 ML IV SCH ×6 (11:06→16:16)
[2020-01-05] MEDS: POTASSIUM CL 10MEQ/50ML IVPB 50 ML IV SCH ×8 (11:07→18:20)
--- NOTE | 2020-01-05 11:38 | Progress Note - Hospitalist ---
Subjective HPI/CC On Admission Date Seen by Provider: Jan 05, 2020 Time Seen by Provider: 08:40 Pt is a 49yoCF with a PMH of Gitelman Syndrome who presented to the ER due to hematemesis. She reports that she was just in [place] to visit her dad. She states she flew down to [place] on 12/23 and then drove across the border with her aunt and uncle. They drove back roughly 1 week ago. While she was in [place] she developed hematemesis there and underwent open abdominal surgery for what sounds like peptic ulcer disease. This was roughly 1 week ago (4 days before they drove back). She states her incision is healing well and she had been feeling better and staying with her aunt and uncle because she has felt too fatigued to drive back. She also complains of loose stools. Last night she vomited up 1-1.5 cups per her report of blood and developed severe abdominal pain prompting her to see care in the ER. CT scan was done which revealed colitis. She was admitted to surgery and I am consulted for medical management. She denies any respiratory symptoms or fever. Of note she has a history in 2006 of surgery for achalasia that resulted in j tube placement for enteral feeds, 1 year long hospital stay and ~100lb weight loss. She has since graduated from her J-tube and is on Keppra for vagal nerve dysfunction and normally maintains her own nutrition orally. Subjective/Events-last exam She continues to nausea. She denies any vomiting. She is also having abdominal pain. She denies any fevers or chills. She denies any cough. She denies any shortness of breath. She is not having any chest pain. Objective Exam Vital Signs Vital Signs Date Time Temp Pulse Resp B/P (MAP) Pulse Ox O2 Delivery O2 Flow Rate FiO2 01/05/20 09:53 36.2 81 20 101/66 (78) 100 Room Air Capillary Refill : Less Than 3 SecondsLess Than 3 Seconds General Appearance: No Apparent Distress, WD/WN Respiratory: Lungs Clear, Normal Breath Sounds, No Respiratory Distress Cardiovascular: Regular Rate, Rhythm, No Edema, No Murmur Gastrointestinal: Soft, Abnormal Bowel Sounds (Diminished), Tenderness (Left upper quadrant), Other (Midline incision from recent surgery appears to be well- healing) Extremity: Normal Inspection, Non Tender, No Pedal Edema Neurologic/Psychiatric: Alert, Oriented x3, No Motor/Sensory Deficits, Normal Mood/Affect Skin: Normal Color, Warm/Dry Results/Procedures Lab Laboratory Tests 01/05/20 04:15 Patient resulted labs reviewed. Imaging: Reviewed Imaging Report Assessment/Plan Assessment and Plan Assess & Plan/Chief Complaint Colitis Hematemesis Management per primary Continue to monitor hemoglobin Continue antibiotics Pain regimen ordered CLD Protonix, Famotidine, and Carafate Gitelman Syndrome Hypokalemia Hypomagnesemia Continue to monitor and replace electrolytes as needed Travel history COVID testing pending Diagnosis/Problems Diagnosis/Problems (1) Hematemesis Status: Acute Qualifiers: Nausea presence: with nausea Qualified Codes: K92.0 - Hematemesis (2) Recent foreign travel Status: Acute (3) Gitelman syndrome Status: Chronic Clinical Quality Measures DVT/VTE Risk/Contraindication: Risk Factor Score Per Nursin RFS Level Per Nursing on Admit: 4+=Very High ASHLEY ABRAMS MD Jan 05, 2020 11:38
[2020-01-05 12:04] VITALS: BP 99/62
[2020-01-05] MEDS: ONDANSETRON 4 MG/2 ML (SDV) Z0FRAN IV PRN ×2 (13:08→20:21)
[2020-01-05] MEDS ORDERED: CHOL100048 PO (15:10)
[2020-01-05] MEDS ORDERED: FAMO40TA72 PO (15:10)
[2020-01-05] MEDS ORDERED: CALC-823 PO (15:10)
[2020-01-05] MEDS ORDERED: MAGN400T39 PO (15:10)
[2020-01-05] MEDS ORDERED: CYAN50008 PO (15:10)
[2020-01-05] MEDS ORDERED: FERR-84 PO (15:10)
--- NOTE | 2020-01-05 15:11 | NUR ---
SPOKE WITH PT TO COMPLETE THE MED REC. I FIRST CALLED THE PT WHEN SHE WAS IN ISOLATION TO FIND OUT ABOUT HER MEDICATIONS- SHE STATED SHE HAD ALREADY GIVEN THIS LIST TO SOMEONE. I TOLD HER I WOULD CHECK AND GET BACK WITH HER- I ALSO INQUIRED ABOUT THE PHARMACY SHE USES. I WAS TOLD THE PHARM SHE USES SHUT DOWN AND I WOULDNT BE ABLE TO CONTACT THEM. WHILE TRYING TO LOCATE A LIST (I NEVER FOUND ONE) SHE WAS RELEASED FROM [place] AND I WAS ABLE TO GO SPEAK WITH HER. SHE FOUND A LIST IN HER PURSE THAT LISTED MEDICATIONS. I ONCE AGAIN ASKED ABOUT A PHARMACY THAT SHE USES (SHE SAYS THE NAME IS [facility] IN [place], [place]), BUT SHE SAYS THE [employer] AND THERE ARE NO RECORDS. I EXPLAINED THAT I STILL SHOULD BE ABLE TO GET INFORMATION ABOUT THE PHARMACY AND THEY HAVE TO DO SOMETHING WITH THEIR RECORDS EVEN IF THEY SHUT DOWN- PT JUST KEPT SAYING SHE DIDNT KNOW AND SAYING SHE ONCE GOT SAMPLE OF HER MEDS AND THAT MUST HAVE LASTED HER. I THEN ASKED IF SHE HAD A PHONE NUMBER FOR THE PHARMACY AND SHE WAS UNABLE TO PRODUCE ONE (AND SAID IT WOULDNT MATTER SINCE ITS SHUT DOWN). WHEN I TRIED TO SEE IF I COULD GET AN ADDRESS OR WHAT STREET IT WAS ON- PT SAID SHE DIDNT KNOW AND THAT IT WAS ON A SIDE STRE[address]. I ASKED WHO HER PCP WAS OR WHO PRESCRIBED HER MEDICATIONS AND SHE SAID SHE DIDNT HAVE A DR AND WASNT SURE WHO WROTE THE RX'S. I THEN CALLED MULTIPLE PHARMACIES AROUND [facility] AND [place] TO SEE IF I COULD GET INFORMATION ABOUT "[facility]" AND ALL THE PHARMACIES WERE UNABLE TO GIVE ME ANY INFO AND SAY THEY HAVE NEVER HEARD OF IT. DUE TO THESE REASONS I HAVE LEFT ALL THE PRESCRIPTION MEDICATION OFF THE MED REC SINCE I CANNOT VERIFY ANY OF IT. THE FOLLOWING MEDS ARE WHAT SHE HAD LISTED: POTASSIUM ER 40MEQ BID ZOLOFT 150MG 1 HS CARAFATE 1 GM 1 TID ATIVAN PRN KEPPRA 1000MG 1 BID OTC MEDS I DID INCLUDE: CALCIUM VIT B12 IRON MAGNESIUM VITAMIN D3 PEPCID
[2020-01-05 16:00] VITALS: BP 97/52
[2020-01-05 19:43] VITALS: BP 112/58
--- NOTE | 2020-01-06 00:06 | NUR ---
DR PALMA NOTIFIED ABOUT PT'S UNCONTROLLED ABD PAIN. NEW ORDERS RECEIVED FOR A ONE TIME ORDER OF DILAUDID 0.5MG IV NOW. WILL CONTINUE TO MONITOR.
[2020-01-06 00:09] VITALS: BP 117/55
[2020-01-06] MEDS: diphenhydrAMINE 50 MG/ML INJ (BENADRYL) IVP PRN ×4 (01:23→21:16)
[2020-01-06] MEDS: ONDANSETRON 4 MG/2 ML (SDV) Z0FRAN IV PRN ×4 (01:25→20:42)
[2020-01-06] MEDS: HYDROmorphone 2 MG/ML VIAL (DILAUDID) IVP PRN ×6 (01:43→20:42)
[2020-01-06 04:08] VITALS: BP 104/55
[2020-01-06 04:30] LABS: BASOPHILS % (AUTO) 1 % (0-10); EOSINOPHILS # (AUTO) 0.2 10^3/uL (0.0-0.3); EOSINOPHILS % (AUTO) 6 % (0-10); HEMATOCRIT 28 % (35-52); HEMOGLOBIN 8.7 G/DL (11.5-16.0); LYMPHOCYTES # (AUTO) 1.1 X 10^3 (1.0-4.0); LYMPHOCYTES % (AUTO) 33 % (12-44); MEAN CORPUSCULAR HEMOGLOBIN 25 PG (25-34); MEAN CORPUSCULAR HGB CONC 31 G/DL (32-36); MEAN CORPUSCULAR VOLUME 82 FL (80-99); MEAN PLATELET VOLUME 9.5 FL (7.4-10.4); MONOCYTES # (AUTO) 0.6 X 10^3 (0.0-1.0); MONOCYTES % (AUTO) 16 % (0-12); NEUTROPHILS # (AUTO) 1.5 X 10^3 (1.8-7.8); NEUTROPHILS % (AUTO) 45 % (42-75); PLATELET COUNT 321 10^3/uL (130-400); RED CELL DISTRIBUTION WIDTH 17.8 % (10.0-14.5); WHITE BLOOD COUNT 3.5 10^3/uL (4.3-11.0)
[2020-01-06 04:50] LABS: BUN/CREATININE RATIO 9; CALCIUM 8.6 MG/DL (8.5-10.1); CARBON DIOXIDE 27 MMOL/L (21-32); CHLORIDE 101 MMOL/L (98-107); CREATININE SERUM 0.78 MG/DL (0.60-1.30); GFR ESTIMATED > 60; GLUCOSE 106 MG/DL (70-105); POTASSIUM 3.5 MMOL/L (3.6-5.0); SODIUM 139 MMOL/L (135-145)
[2020-01-06] MEDS: PROMETHAZINE INJ 25 MG/ML (PHENERGAN) AMP IV PRN ×2 (05:49→23:09)
[2020-01-06] MEDS: metroNIDAZOLE 500 MG (FLAGYL) TAB PO SCH (07:44)
[2020-01-06] MEDS: PANTOPRAZOLE 40 MG (PROTONIX) VIAL IV SCH ×2 (07:44→20:42)
[2020-01-06] MEDS: SUCRALFATE 1 GM (CARAFATE) TAB PO SCH ×4 (07:44→20:41)
[2020-01-06] MEDS: FAMOTIDINE 20MG/2ML IV (PEPCID) IV SCH ×2 (07:44→20:42)
[2020-01-06] MEDS: CIPROFLOXACIN IV 400MG/200ML 200 ML IV SCH ×2 (07:45→20:41)
[2020-01-06 08:00] VITALS: BP 99/67
[2020-01-06] MEDS ORDERED: PROM25TA14 PO (10:04)
--- NOTE | 2020-01-06 10:21 | Discharge Summary ---
Discharge Summary Hospital Course Was the Problem List Reviewed?: Yes Problems/Dx: (1) Colitis Status: Acute (2) Hematemesis Status: Acute Qualifiers: Qualified Codes: K92.0 - Hematemesis (3) Recent foreign travel Status: Acute (4) Gitelman syndrome Status: Chronic Hospital Course Date of Admission: Jan 04, 2020 at 03:15 Admission Diagnosis : Hematemesis Family Physician/Provider: No,Local Physician Date of Discharge: 01/06/20 Discharge Diagnosis: Hematemesis Hospital Course: Thuy Rosario is a 49-year-old female who was admitted with hematemesis. She had recent travel to [place] 2 weeks ago and while there developed hematemesis and subsequently had an abdominal surgery. She subsequently developed recurrent hematemesis and was admitted. Her hemoglobin dropped from 11 to 8 but then stabilized. Her course was complicated by electrolyte abnormalities due to her underlying Gitelman syndrome and she was given supplemental potassium and magnesium. She was given a course of ciprofloxacin and Flagyl for colitis. She was given Zofran and Phenergan for her nausea and vomiting. She was given a prescription for Lortab for pain. She should follow-up with her primary care physician later this week. Labs and Pending Lab Test: Laboratory Tests 01/06/20 04:15: White Blood Count 3.5L, Red Blood Count 3.48L, Hemoglobin 8.7L, Hematocrit 28L, Mean Corpuscular Volume 82, Mean Corpuscular Hemoglobin 25, Mean Corpuscular Hemoglobin Concent 31L, Red Cell Distribution Width 17.8H, Platelet Count 321, Mean Platelet Volume 9.5, Neutrophils (%) (Auto) 45, Lymphocytes (%) (Auto) 33, Monocytes (%) (Auto) 16H, Eosinophils (%) (Auto) 6, Basophils (%) (Auto) 1, Neutrophils # (Auto) 1.5L, Lymphocytes # (Auto) 1.1, Monocytes # (Auto) 0.6, Eosinophils # (Auto) 0.2, Basophils # (Auto) 0.0, Sodium Level 139, Potassium Level 3.5L, Chloride Level 101, Carbon Dioxide Level 27, Anion Gap 11, Blood Urea Nitrogen 7, Creatinine 0.78, Estimat Glomerular Filtration Rate > 60, BUN/Creatinine Ratio 9, Glucose Level 106H, Calcium Level 8.6, Magnesium Level 1.7 Microbiology 01/04/20 MRSA Screen - Final, Complete MRSA not isolated Home Meds Active Promethazine Tablet (Promethazine HCl) 25 Mg Tablet 25 Mg PO Q6H PRN 7 Days Reported Iron (Ferrous Sulfate) 325 Mg Tablet 325 Mg PO DAILY Pepcid (Famotidine) 40 Mg Tablet 40 Mg PO DAILY Vitamin D3 (Cholecalciferol (Vitamin D3)) 25 Mcg Capsule 25 Mcg PO DAILY Magnesium (Magnesium Oxide) 400 Mg Tablet 800 Mg PO TID Vitamin B12 (Cyanocobalamin (Vitamin B-12)) 5,000 Mcg Tab.rapdis 5,000 Mcg PO DAILY Calcium (Calcium Carbonate) 500 Mg Tablet 500 Mg PO DAILY Assessment/Pt Instructions Take medications as prescribed. Complete her course of antibiotics even if you're feeling better. Follow up with her primary care physician later this week. Discharge Planning: <30 minutes discharge planning Discharge Instructions Discharge Diet: No Restrictions Activity as Tolerated: Yes Discharge Physical Examination Vital Signs Vital Signs Date Time Temp Pulse Resp B/P (MAP) Pulse Ox O2 Delivery O2 Flow Rate FiO2 01/06/20 08:00 100 Room Air 01/06/20 08:00 36.8 95 20 99/67 (78) General Appearance: No Apparent Distress, Anxious Respiratory: Lungs Clear, Normal Breath Sounds, No Respiratory Distress Cardiovascular: Regular Rate, Rhythm, No Edema, No Murmur Gastrointestinal: Normal Bowel Sounds, Non Tender, Soft Extremity: Normal Inspection, Non Tender, No Pedal Edema Skin: Normal Color, Warm/Dry Neurologic/Psychiatric: Alert, Oriented x3, No Motor/Sensory Deficits, Normal Mood/Affect Allergies: Coded Allergies: Iodinated Contrast Media (Verified Allergy, Unknown, Hives, 01/04/20) NSAIDS (Non-Steroidal Anti-Inflamma (Verified Allergy, Unknown, Bleeding, 01/04/20) Sulfa (Sulfonamide Antibiotics) (Verified Allergy, Unknown, Rash, 01/04/20) adhesive (Verified Allergy, Unknown, Rash, 01/04/20) ketorolac (Verified Allergy, Unknown, Rash, 01/04/20) metoclopramide (Verified Adverse Reaction, Unknown, Anxiety and Panic, 01/04/20) morphine (Verified Adverse Reaction, Unknown, Vomiting, 01/04/20) prochlorperazine (Verified Adverse Reaction, Unknown, Anxiety and panic, 01/04/20) Discharge Summary Date of Admission Jan 04, 2020 at 03:15 Date of Discharge Discharge Date: Jan 06, 2020 Discharge Time: 10:19 Admission Diagnosis Hematemesis Discharge Diagnosis Colitis, Hematemesis (1) Colitis Status: Acute (2) Hematemesis Status: Acute Qualifiers: Qualified Codes: K92.0 - Hematemesis (3) Recent foreign travel Status: Acute (4) Gitelman syndrome Status: Chronic Clinical Quality Measures DVT/VTE Risk/Contraindication: Risk Factor Score Per Nursin RFS Level Per Nursing on Admit: 4+=Very High ASHLEY ABRAMS MD Jan 06, 2020 10:20
--- NOTE | 2020-01-06 10:56 | Progress Note - Hospitalist ---
Subjective HPI/CC On Admission Date Seen by Provider: Jan 06, 2020 Time Seen by Provider: 08:40 Pt is a 49yoCF with a PMH of Gitelman Syndrome who presented to the ER due to hematemesis. She reports that she was just in [place] to visit her dad. She states she flew down to [place] on 12/23 and then drove across the border with her aunt and uncle. They drove back roughly 1 week ago. While she was in [place] she developed hematemesis there and underwent open abdominal surgery for what sounds like peptic ulcer disease. This was roughly 1 week ago (4 days before they drove back). She states her incision is healing well and she had been feeling better and staying with her aunt and uncle because she has felt too fatigued to drive back. She also complains of loose stools. Last night she vomited up 1-1.5 cups per her report of blood and developed severe abdominal pain prompting her to see care in the ER. CT scan was done which revealed colitis. She was admitted to surgery and I am consulted for medical management. She denies any respiratory symptoms or fever. Of note she has a history in 2006 of surgery for achalasia that resulted in j tube placement for enteral feeds, 1 year long hospital stay and ~100lb weight loss. She has since graduated from her J-tube and is on Keppra for vagal nerve dysfunction and normally maintains her own nutrition orally. Subjective/Events-last exam She continues to have nausea and vomiting. She is having lucina bloody hematemesis this morning. She reports left upper quadrant abdominal pain. She denies any fevers or chills. She denies any chest pain or shortness of breath. Objective Exam Vital Signs Vital Signs Date Time Temp Pulse Resp B/P (MAP) Pulse Ox O2 Delivery O2 Flow Rate FiO2 01/06/20 08:00 100 Room Air 01/06/20 08:00 36.8 95 20 99/67 (78) Capillary Refill : Less Than 3 SecondsLess Than 3 Seconds General Appearance: WD/WN, Mild Distress Respiratory: Lungs Clear, Normal Breath Sounds, No Respiratory Distress Cardiovascular: Regular Rate, Rhythm, No Edema, No Murmur Gastrointestinal: Normal Bowel Sounds, Soft, Tenderness (Left upper quadrant) Extremity: Normal Inspection, Non Tender, No Pedal Edema Neurologic/Psychiatric: Alert, Oriented x3, No Motor/Sensory Deficits, Normal Mood/Affect Skin: Warm/Dry, Pallor Results/Procedures Lab Laboratory Tests 01/06/20 04:15 Patient resulted labs reviewed. Assessment/Plan Assessment and Plan Assess & Plan/Chief Complaint Colitis Hematemesis Management per primary, considering endoscopy Repeat hemoglobin this afternoon Continue antibiotics Pain regimen ordered Nothing by mouth Protonix, Famotidine, and Carafate Gitelman Syndrome Hypokalemia Hypomagnesemia Continue to monitor and replace electrolytes as needed DVT prophylaxis: Held due to major active bleeding Diagnosis/Problems Diagnosis/Problems (1) Colitis Status: Acute (2) Hematemesis Status: Acute Qualifiers: Nausea presence: with nausea Qualified Codes: K92.0 - Hematemesis (3) Recent foreign travel Status: Acute (4) Gitelman syndrome Status: Chronic Clinical Quality Measures DVT/VTE Risk/Contraindication: Risk Factor Score Per Nursin RFS Level Per Nursing on Admit: 4+=Very High ASHLEY ABRAMS MD Jan 06, 2020 10:56
[2020-01-06] MEDS: MAGNESIUM 1 GM/100 ML IVPB 100 ML IV SCH ×2 (11:00→11:07)
[2020-01-06] MEDS: POTASSIUM CL 10MEQ/50ML IVPB 50 ML IV SCH ×4 (11:38→14:14)
[2020-01-06 12:00] VITALS: BP 115/79
--- NOTE | 2020-01-06 12:51 | Progress Note ---
Subjective Date Seen by a Provider: Jan 06, 2020 Time Seen by a Provider: 12:00 Subjective/Events-last exam has had 2 episodes hematamesis. pain LUQ still present however slighly improved. Objective Exam Vital Signs Date Time Temp Pulse Resp B/P (MAP) Pulse Ox O2 Delivery O2 Flow Rate FiO2 01/06/20 12:00 36.2 98 20 115/79 (91) 98 Room Air 01/06/20 08:00 100 Room Air 01/06/20 08:00 36.8 95 20 99/67 (78) 100 Room Air 01/06/20 04:08 36.7 92 20 104/55 (71) 98 Room Air 01/06/20 00:09 36.9 104 20 117/55 (75) 98 Room Air 01/05/20 20:15 100 Room Air 01/05/20 19:43 36.7 98 18 112/58 (76) 100 Room Air 01/05/20 17:41 36.9 97 20 97 Room Air 01/05/20 16:00 36.9 97 20 97/52 (67) 97 Room Air I & O 01/06/20 06:59 Intake Total 1440 ml Balance 1440 ml Capillary Refill : Less Than 3 SecondsLess Than 3 Seconds General Appearance: No Apparent Distress HEENT: PERRL/EOMI Neck: Full Range of Motion Respiratory: Chest Non Tender, Normal Breath Sounds Cardiovascular: Regular Rate, Rhythm Gastrointestinal: soft, tenderness Extremity: Normal Capillary Refill Neurologic/Psychiatric: Alert, Oriented x3 Skin: Normal Color Lymphatic: No Adenopathy Results Lab Laboratory Tests 01/06/20 04:15: White Blood Count 3.5L, Red Blood Count 3.48L, Hemoglobin 8.7L, Hematocrit 28L, Mean Corpuscular Volume 82, Mean Corpuscular Hemoglobin 25, Mean Corpuscular Hemoglobin Concent 31L, Red Cell Distribution Width 17.8H, Platelet Count 321, Mean Platelet Volume 9.5, Neutrophils (%) (Auto) 45, Lymphocytes (%) (Auto) 33, Monocytes (%) (Auto) 16H, Eosinophils (%) (Auto) 6, Basophils (%) (Auto) 1, Neutrophils # (Auto) 1.5L, Lymphocytes # (Auto) 1.1, Monocytes # (Auto) 0.6, Eosinophils # (Auto) 0.2, Basophils # (Auto) 0.0, Sodium Level 139, Potassium Level 3.5L, Chloride Level 101, Carbon Dioxide Level 27, Anion Gap 11, Blood Urea Nitrogen 7, Creatinine 0.78, Estimat Glomerular Filtration Rate > 60, BUN/Creatinine Ratio 9, Glucose Level 106H, Calcium Level 8.6, Magnesium Level 1.7 Microbiology 01/04/20 MRSA Screen - Final, Complete MRSA not isolated Assessment/Plan Assessment/Plan Assess & Plan/Chief Complaint UGIB secondary severe gastritis. will proceed with EGD in am. descending colitis. continue abx. Clinical Quality Measures DVT/VTE Risk/Contraindication: Risk Factor Score Per Nursin RFS Level Per Nursing on Admit: 4+=Very High MARGOTH WARD MD Jan 06, 2020 12:51
--- NOTE | 2020-01-06 13:45 | NUR ---
Pastoral care visit.
[2020-01-06] MEDS: metroNIDAZOLE 500MG/100ML IVPB 100 ML IV SCH ×2 (14:17→22:01)
[2020-01-06 15:19] VITALS: BP 99/64
[2020-01-06 15:50] LABS: HEMOGLOBIN 8.8 G/DL (11.5-16.0)
[2020-01-06 20:00] VITALS: BP 106/62
[2020-01-06] MEDS: SERTRALINE 100 MG (ZOLOFT) TAB PO SCH (20:41)
[2020-01-06] MEDS: LEVETIRACETAM 1,000 MG (KEPPRA) TABLET PO SCH (20:41)
[2020-01-07] VITALS (23 sets, daily range): BP systolic 91–141; BP diastolic 52–79
[2020-01-07] MEDS ORDERED: HYDROmorphone 2 MG/ML VIAL (DILAUDID) IV ONE (00:30)
[2020-01-07] MEDS: diphenhydrAMINE 50 MG/ML INJ (BENADRYL) IVP PRN ×6 (02:22→21:57)
[2020-01-07] MEDS: HYDROmorphone 2 MG/ML VIAL (DILAUDID) IVP PRN ×6 (02:23→21:57)
[2020-01-07] MEDS: ONDANSETRON 4 MG/2 ML (SDV) Z0FRAN IV PRN ×3 (02:23→14:08)
[2020-01-07] MEDS: metroNIDAZOLE 500MG/100ML IVPB 100 ML IV SCH ×3 (05:07→22:13)
[2020-01-07 05:27] LABS: BASOPHILS % (AUTO) 1 % (0-10); EOSINOPHILS # (AUTO) 0.2 10^3/uL (0.0-0.3); EOSINOPHILS % (AUTO) 7 % (0-10); HEMATOCRIT 28 % (35-52); HEMOGLOBIN 8.7 G/DL (11.5-16.0); LYMPHOCYTES # (AUTO) 1.2 X 10^3 (1.0-4.0); LYMPHOCYTES % (AUTO) 39 % (12-44); MEAN CORPUSCULAR HEMOGLOBIN 25 PG (25-34); MEAN CORPUSCULAR HGB CONC 31 G/DL (32-36); MEAN CORPUSCULAR VOLUME 82 FL (80-99); MEAN PLATELET VOLUME 9.9 FL (7.4-10.4); MONOCYTES # (AUTO) 0.5 X 10^3 (0.0-1.0); MONOCYTES % (AUTO) 15 % (0-12); NEUTROPHILS # (AUTO) 1.2 X 10^3 (1.8-7.8); NEUTROPHILS % (AUTO) 38 % (42-75); PLATELET COUNT 252 10^3/uL (130-400); RED CELL DISTRIBUTION WIDTH 17.6 % (10.0-14.5); WHITE BLOOD COUNT 3.1 10^3/uL (4.3-11.0)
[2020-01-07 05:48] LABS: BUN/CREATININE RATIO 14; CALCIUM 8.6 MG/DL (8.5-10.1); CARBON DIOXIDE 25 MMOL/L (21-32); CHLORIDE 102 MMOL/L (98-107); CREATININE SERUM 0.71 MG/DL (0.60-1.30); GFR ESTIMATED > 60; GLUCOSE 93 MG/DL (70-105); POTASSIUM 3.7 MMOL/L (3.6-5.0); SODIUM 140 MMOL/L (135-145)
[2020-01-07] MEDS ORDERED: NS IV 500 ML 500 ML ONE ×2 (07:43→11:38)
[2020-01-07] MEDS: POTASSIUM CL 10MEQ/50ML IVPB 50 ML IV SCH ×4 (07:54→14:02)
[2020-01-07] MEDS: MAGNESIUM 1 GM/100 ML IVPB 100 ML IV SCH ×2 (07:54→09:12)
[2020-01-07] MEDS: PANTOPRAZOLE 40 MG (PROTONIX) VIAL IV SCH ×2 (09:13→20:56)
[2020-01-07] MEDS: FAMOTIDINE 20MG/2ML IV (PEPCID) IV SCH ×2 (09:13→20:56)
[2020-01-07] MEDS: SUCRALFATE 1 GM (CARAFATE) TAB PO SCH ×4 (09:25→20:56)
[2020-01-07] MEDS: LEVETIRACETAM 1,000 MG (KEPPRA) TABLET PO SCH ×2 (09:25→20:56)
--- NOTE | 2020-01-07 09:28 | Conscious Sedation/ASA ---
Conscious Sedation Pre-Proced Time 09:00 ASA Score 2 For ASA 3 and 4: Consider anesthesia and medical clearance. Also, for patients with a history of failed moderate sedation consider anesthesia. Airway Lungs Heart ASA score ASA 1: a normal healthy patient ASA 2: a patient with a mild systemic disease (mid diabetes, controlled hypertension, obesity ASA 3: a patient with a severe systemic disease that limits activity (angina, COPD, prior Myocardial infarction) ASA 4: a patient with an incapacitating disease that is a constant threat to life (CHF, renal failure) ASA 5: a moribund patient not expected to survive 24 hrs. (ruptured aneurysm) ASA 6: a declared brain- patient whose organs are being harvested. For emergent operations, add the letter E after the classification Mallampati Classification Grade 2 Sedation Plan Analgesia, Amnesia, Plan communicated to team members, Discussed options with patient/fam, Discussed risks with patient/fam The patient is an appropriate candidate to undergo the planned procedure, sedation, and anesthesia. The patient immediately re-assessed prior to indication. MARGOTH WARD MD Jan 07, 2020 09:28
--- NOTE | 2020-01-07 09:29 | Progress Note-Pre Operative ---
Pre-Operative Progress Note H&P Reviewed The H&P was reviewed, patient examined and no changes noted. Date Seen by Provider: Jan 07, 2020 Time Seen by Provider: 09:00 Date H&P Reviewed: Jan 07, 2020 Time H&P Reviewed: 09:00 Pre-Operative Diagnosis: persistent hematatmesis MARGOTH WARD MD Jan 07, 2020 09:28
[2020-01-07] MEDS: CIPROFLOXACIN IV 400MG/200ML 200 ML IV SCH ×2 (09:59→20:55)
--- NOTE | 2020-01-07 10:40 | Progress Note - Hospitalist ---
Subjective HPI/CC On Admission Date Seen by Provider: Jan 07, 2020 Time Seen by Provider: 08:15 Pt is a 49yoCF with a PMH of Gitelman Syndrome who presented to the ER due to hematemesis. She reports that she was just in [place] to visit her dad. She states she flew down to [place] on 12/23 and then drove [place] with her aunt and uncle. They drove back roughly 1 week ago. While she was in [place] she developed hematemesis there and underwent open abdominal surgery for what sounds like peptic ulcer disease. This was roughly 1 week ago (4 days before they drove back). She states her incision is healing well and she had been feeling better and staying with her aunt and uncle because she has felt too fatigued to drive back. She also complains of loose stools. Last night she vomited up 1-1.5 cups per her report of blood and developed severe abdominal pain prompting her to see care in the ER. CT scan was done which revealed colitis. She was admitted to surgery and I am consulted for medical management. She denies any respiratory symptoms or fever. Of note she has a history in 2006 of surgery for achalasia that resulted in j tube placement for enteral feeds, 1 year long hospital stay and ~100lb weight loss. She has since graduated from her J-tube and is on Keppra for vagal nerve dysfunction and normally maintains her own nutrition orally. Subjective/Events-last exam She reports having abdominal pain overnight. She also had nausea and vomiting but it was not as bloody. She has no other complaints or concerns. She denies any fevers or chills. She denies any chest pain or shortness of breath. Objective Exam Vital Signs Vital Signs Date Time Temp Pulse Resp B/P (MAP) Pulse Ox O2 Delivery O2 Flow Rate FiO2 01/07/20 08:00 36.7 100 20 94/61 (72) 97 Room Air Capillary Refill : Less Than 3 SecondsLess Than 3 Seconds General Appearance: No Apparent Distress, WD/WN Respiratory: Lungs Clear, Normal Breath Sounds, No Respiratory Distress Cardiovascular: Regular Rate, Rhythm, No Edema, No Murmur Gastrointestinal: Normal Bowel Sounds, Soft, Tenderness Extremity: Normal Inspection, Non Tender, No Pedal Edema Neurologic/Psychiatric: Alert, Oriented x3 Skin: Normal Color, Warm/Dry Results/Procedures Lab Laboratory Tests 01/06/20 15:45 01/07/20 05:16 Patient resulted labs reviewed. Assessment/Plan Assessment and Plan Assess & Plan/Chief Complaint Colitis Hematemesis Acute blood loss anemia Management per primary Hemoglobin stable, a 0.7 this morning Continue antibiotics Pain regimen ordered Nothing by mouth Protonix, Famotidine, and Carafate Planning for upper endoscopy today Gitelman Syndrome Hypokalemia Hypomagnesemia Continue to monitor and replace electrolytes as needed DVT prophylaxis: Held due to major active bleeding Diagnosis/Problems Diagnosis/Problems (1) Colitis Status: Acute (2) Hematemesis Status: Acute Qualifiers: Nausea presence: with nausea Qualified Codes: K92.0 - Hematemesis (3) Recent foreign travel Status: Acute (4) Gitelman syndrome Status: Chronic Clinical Quality Measures DVT/VTE Risk/Contraindication: Risk Factor Score Per Nursin RFS Level Per Nursing on Admit: 4+=Very High ASHLEY ABRAMS MD Jan 07, 2020 10:40
--- NOTE | 2020-01-07 11:28 | NUR ---
PT TO ENDO VIA WC
[2020-01-07] MEDS ORDERED: NS IV 500 ML 500 ML IV PRN (11:38)
[2020-01-07] MEDS ORDERED: HURRICAINE EXT TUBE (BENZOCAINE) XX PRN (11:45)
[2020-01-07] MEDS ORDERED: LIDOCAINE JELLY 2% 6 ML SYRINGE MM PRN (11:45)
[2020-01-07] MEDS ORDERED: MIDAZOLAM 5 MG/5 ML (VERSED) VIAL ONE ×2 (11:46)
[2020-01-07] MEDS ORDERED: fentaNYL INJECTION 100 MCG/2 ML AMP ONE (11:46)
[2020-01-07] MEDS ORDERED: LIDOCAINE JELLY 2% 6 ML SYRINGE ONE (11:47)
[2020-01-07] MEDS ORDERED: HURRICAINE EXT TUBE (BENZOCAINE) ONE (11:47)
[2020-01-07] MEDS: fentaNYL INJECTION 100 MCG/2 ML AMP IVP ONE (12:05)
[2020-01-07] MEDS: MIDAZOLAM 5 MG/5 ML (VERSED) VIAL IV PRN ×4 (12:06→12:40)
--- NOTE | 2020-01-07 13:18 | Progress Note-Post Operative ---
Post-Operative Progess Note Surgeon (s)/[facility] [place] (s) Surgeon MARGOTH WARD MD [place] [place]: none Pre-Operative Diagnosis persistent hematatmesis Post-Operative Diagnosis reflux esophagitis(stage 2), recurrent HH(3cm), post-surgical changes proximal gastric fundus with no bleeding, type 4 ulcer with slow ooze blood. no preploric or duo ulcers. Procedure & Operative Findings Date of Procedure 01/07/20 Procedure Performed/Findings EGD with bx and hemostatic clip placement x5 Anesthesia Type cs Estimated Blood Loss Estimated blood loss (mL): minimal Specimens/Packing Specimens Removed gastric ulcer MARGOTH WARD MD Jan 07, 2020 13:18
--- NOTE | 2020-01-07 14:47 | OPERATIVE REPORT ---
DATE OF SERVICE: 01/07/2020 PREOPERATIVE DIAGNOSIS: Persistent hematemesis. POSTOPERATIVE DIAGNOSES: Previous gastrotomy of the proximal fundus portion of the stomach with no active bleeding. There is a recurrent hiatal hernia. There appeared to be a type 4 ulcer near the GE junction along the lesser curvature with a slow ooze. There were no ulcerations of the stomach, antrum, pylorus or duodenum. PROCEDURES PERFORMED: EGD with biopsy and hemostasis with clip deployment. SURGEON: Margoth Ward MD ANESTHESIA: Conscious sedation. ESTIMATED BLOOD LOSS: Minimal. FINDINGS: Same as. DISPOSITION: The patient tolerated the procedure well. INDICATIONS: The patient is a 49-year-old female, who presented with hematemesis. She has a complex history and states that approximately 3 weeks or longer, she met with other family members in [place], [place] and then drove to [facility] to visit her father in [place]. She has a longstanding history of peptic ulcer disease and states that she has undergone multiple EGDs in the past. She has also had a previous hiatal hernia repair. 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 She states that while in [place], she developed a significant hematemesis and was admitted and this could not be controlled by endoscopy or medically and she underwent a midline laparotomy incision, gastrotomy and suture hemostasis. She does state that when she was able to rehabilitate well enough, she then began her journey by vehicle back to her home, which is approximately one hour away from [place]. She states that she stopped here in [place] in [place] knowing that she had family within the region and she developed hematemesis. While being admitted, her hemoglobin has decreased some and she has had hematemesis on a daily basis, which has been a small amount. She has been on Protonix 40 mg IV b.i.d. as well as Carafate. She and no one knows what type of surgery was done in [place]. DESCRIPTION OF PROCEDURE: The patient was brought to the endoscopy suite and laid in the left lateral decubitus position with head slightly elevated. After adequate IV pain and stated medications and conscious sedation anesthesia, the mouthpiece was applied. The endoscope was placed in the mouth, visualizing the pharynx and hypopharyngeal region. Vocal cords, epiglottis and vallecula identified and appeared to be normal. Endoscope was then gently intubated. Esophageal opening and esophagus insufflated. The endoscope was then advanced to the first, second, third portion of esophagus at the level of the GE junction, reflux esophagitis stage II identified. There were some postsurgical changes next to this region as well. It appears that she does have a recurrent hiatal hernia and within the fundus of the stomach appeared to be the area of the previous gastrotomy. There was no active bleeding in this region. The endoscope was then advanced in the stomach, where there was some clotted dark blood identified within the cardia portion of the stomach. There was also a food particulate matter mixed with this. This was suctioned, irrigated and suctioned out. Again, a recurrent hiatal hernia approximately 3 cm in size was identified. After this was completely irrigated and suctioned out, it did appear that the patient did have a type 4 ulceration along the lesser curvature with a slow oozing of blood. This was initially biopsied with forceps and electrocautery. We then proceeded to place hemostatic clips within this region with a total of 5 clips. This was then irrigated with visualization of good hemostasis. Throughout the remainder of the stomach, there were no ulcerations or any bleeding sources identified. The pylorus and duodenum appeared normal with no bleeding within these regions as well. The endoscope was then slowly withdrawn while taking a second look and suctioning of residual air with no additional findings. The patient tolerated the procedure well. We will continue with Protonix IV b.i.d. as well as Carafate q.i.d. If her hemoglobin is stable and she does not have any episodes of hematemesis, she may be discharged home and she will need to follow up with her primary care physician as well as specialist within her home region. We will also recommend continuing Carafate one gram q.i.d. for the next 4 weeks as well as Protonix b.i.d. indefinitely at this time. Job ID: [id number] DocumentID: [id number] Dictated Date: 01/07/2020 13:12:34 Manager Staffing Date: 01/07/2020 14:46:49 Dictated By: MARGOTH WARD MD [facility]
[2020-01-07] MEDS: SERTRALINE 100 MG (ZOLOFT) TAB PO SCH (20:56)
[2020-01-08] VITALS: BP 99/66
[2020-01-08] MEDS: HYDROmorphone 2 MG/ML VIAL (DILAUDID) IVP PRN ×6 (01:54→21:36)
[2020-01-08 04:00] VITALS: BP 101/69
[2020-01-08 05:42] LABS: BASOPHILS % (AUTO) 0 % (0-10); EOSINOPHILS # (AUTO) 0.2 10^3/uL (0.0-0.3); EOSINOPHILS % (AUTO) 5 % (0-10); HEMATOCRIT 28 % (35-52); HEMOGLOBIN 8.6 G/DL (11.5-16.0); LYMPHOCYTES # (AUTO) 1.2 X 10^3 (1.0-4.0); LYMPHOCYTES % (AUTO) 30 % (12-44); MEAN CORPUSCULAR HEMOGLOBIN 25 PG (25-34); MEAN CORPUSCULAR HGB CONC 31 G/DL (32-36); MEAN CORPUSCULAR VOLUME 81 FL (80-99); MEAN PLATELET VOLUME 9.6 FL (7.4-10.4); MONOCYTES # (AUTO) 0.5 X 10^3 (0.0-1.0); MONOCYTES % (AUTO) 12 % (0-12); NEUTROPHILS # (AUTO) 2.2 X 10^3 (1.8-7.8); NEUTROPHILS % (AUTO) 53 % (42-75); PLATELET COUNT 237 10^3/uL (130-400); RED CELL DISTRIBUTION WIDTH 17.8 % (10.0-14.5); WHITE BLOOD COUNT 4.1 10^3/uL (4.3-11.0)
--- NOTE | 2020-01-08 05:52 | NUR ---
Pt called RN and reported that she vomited blood. Notified Dr. Smith, no new orders at this time.
[2020-01-08] MEDS: diphenhydrAMINE 50 MG/ML INJ (BENADRYL) IVP PRN ×5 (05:55→22:51)
[2020-01-08] MEDS: ONDANSETRON 4 MG/2 ML (SDV) Z0FRAN IV PRN ×4 (05:55→21:58)
[2020-01-08] MEDS: metroNIDAZOLE 500MG/100ML IVPB 100 ML IV SCH ×3 (05:55→21:38)
--- NOTE | 2020-01-08 06:04 | NUR ---
Pt wanted her Magnesium checked daily. She stated that the magnesium test has not been done and it is essential for her Gitelman Syndrome. Will add daily Magnesium on lab orders per pt request
[2020-01-08 06:05] LABS: BUN/CREATININE RATIO 16; CARBON DIOXIDE 25 MMOL/L (21-32); CHLORIDE 102 MMOL/L (98-107); CREATININE SERUM 0.74 MG/DL (0.60-1.30); POTASSIUM 3.7 MMOL/L (3.6-5.0); SODIUM 138 MMOL/L (135-145)
[2020-01-08 06:06] LABS: CALCIUM 8.6 MG/DL (8.5-10.1); GFR ESTIMATED > 60; GLUCOSE 110 MG/DL (70-105)
--- NOTE | 2020-01-08 06:52 | NUR ---
Received critical result, Magnesium = 1.1. Notified Dr. Smith, received orders for 4 grams of Magnesium. Will follow order.
[2020-01-08] MEDS ORDERED: MAGNESIUM 1 GM/100 ML IVPB 100 ML IV SCH (07:00)
[2020-01-08] MEDS ORDERED: KCL 20 MEQ POWDER FOR ORAL SOLUTION PO NR (07:15)
[2020-01-08] MEDS: MAGNESIUM 1 GM/100 ML IVPB 100 ML IV SCH ×6 (07:27→13:32)
[2020-01-08 08:00] VITALS: BP 108/70
[2020-01-08] MEDS: CIPROFLOXACIN IV 400MG/200ML 200 ML IV SCH ×2 (08:42→21:39)
[2020-01-08] MEDS: LEVETIRACETAM 1,000 MG (KEPPRA) TABLET PO SCH ×2 (08:43→21:39)
[2020-01-08] MEDS: FAMOTIDINE 20MG/2ML IV (PEPCID) IV SCH ×2 (08:43→21:39)
[2020-01-08] MEDS: PANTOPRAZOLE 40 MG (PROTONIX) VIAL IV SCH ×2 (08:43→21:39)
[2020-01-08] MEDS: SUCRALFATE 1 GM (CARAFATE) TAB PO SCH ×4 (08:43→21:39)
[2020-01-08] MEDS ORDERED: SUCR1TAB PO ×2 (08:46→12:29)
[2020-01-08] MEDS ORDERED: PANT40TA3 PO ×2 (08:46→12:29)
--- NOTE | 2020-01-08 09:05 | NUR ---
DC orders received, pt currently receiving mag IV x 6 bags. Will continue with dc when mag replacement is complete.
[2020-01-08] MEDS: PROMETHAZINE INJ 25 MG/ML (PHENERGAN) AMP IV PRN (15:01)
--- NOTE | 2020-01-08 15:16 | NUR ---
DURING DC PT BEGAN THROWING UP BRIGHT RED BLOOD (MODERATE AMOUNT), DR ABRAMS NOTIFIED OF SITUATION. RECEIVED CONFIRMATION TO CONTINUE WITH DISCHARGE. PT AWAITING RIDE HOME AT THIS TIME
--- NOTE | 2020-01-08 17:55 | NUR ---
This RN called to room by bedside RN Reed regarding pt having bright red emesis with clots. 75 ml of bright red blood in basin along with several dime size or smaller clots. This RN called Dr. Smith d/t pt complains of increased discomfort and bright red emesis and anxiety about being discharged as "I will just end up in another ER along the way home." He states that he has done an endoscopy and the patient has bleeding ulcers which hemostasis was attempted with clips and cautery. At this time he feels there are no other treatment options he can pursue and he feels the patient needs to be transferred to another facility that would be able to perform an arteriogram and possible embolization by an interventional radiologist. This is not available at this facility, so this RN will attempt contact with facility in [place] or [place] to find placement for the patient. Patient updated on plan of care and she agrees with transfer.
--- NOTE | 2020-01-08 18:05 | NUR ---
RN ENTERED ROOM TO DEACCESS CHEST PORT, PT SAID SHE NEEDED TO USE THE RESTROOM FIRST. WHEN PT RETURNED SHE STARTED COMPLAINING OF ABD PAIN AND BEGAN VOMITING BRIGHT RED BLOOD. HOUSE SUP CALLED TO COME SEE THE PT.
--- NOTE | 2020-01-08 19:40 | NUR ---
Dr. Smith notified at this time d/t patient now refusing transfer to [place]. Patient states that "I lost a baby there when I was younger and I've never been able to stomach going into that hospital since, I just can't do it." Patient requesting transfer to [facility] or [facility] as she states "she has family close to there that can help her." Dr. Smith states this can wait until tomorrow and we will make a definitive plan then. New order placed to put patient on clear liquids d/t continued hematemesis.
--- NOTE | 2020-01-08 21:30 | NUR ---
PT COMPLAINS OF PAIN, ASKING IS SHE CAN HAVE PAIN MED EARLIER SINCE IT WAS AN HOUR UNTIL NEXT DOSE OR GET SOMETHING ELSE. DR WARD CALLED, DR SAID 1MG DILAUDID CAN BE GIVEN NOW, AND CONTINUE THE PRN SCHEDULE
[2020-01-08] MEDS: SERTRALINE 100 MG (ZOLOFT) TAB PO SCH (21:39)
[2020-01-09] VITALS: BP 111/72
[2020-01-09] MEDS: HYDROmorphone 2 MG/ML VIAL (DILAUDID) IVP PRN ×4 (01:18→14:08)
[2020-01-09] MEDS: diphenhydrAMINE 50 MG/ML INJ (BENADRYL) IVP PRN ×4 (02:46→17:12)
[2020-01-09] MEDS: PROMETHAZINE INJ 25 MG/ML (PHENERGAN) AMP IV PRN (02:48)
[2020-01-09] MEDS: metroNIDAZOLE 500MG/100ML IVPB 100 ML IV SCH ×2 (06:01→16:44)
[2020-01-09] MEDS: ONDANSETRON 4 MG/2 ML (SDV) Z0FRAN IV PRN ×3 (06:01→14:07)
[2020-01-09 06:34] LABS: BASOPHILS % (AUTO) 1 % (0-10); EOSINOPHILS # (AUTO) 0.1 10^3/uL (0.0-0.3); EOSINOPHILS % (AUTO) 5 % (0-10); HEMATOCRIT 29 % (35-52); HEMOGLOBIN 8.9 G/DL (11.5-16.0); LYMPHOCYTES # (AUTO) 1.2 X 10^3 (1.0-4.0); LYMPHOCYTES % (AUTO) 40 % (12-44); MEAN CORPUSCULAR HEMOGLOBIN 25 PG (25-34); MEAN CORPUSCULAR HGB CONC 30 G/DL (32-36); MEAN CORPUSCULAR VOLUME 82 FL (80-99); MEAN PLATELET VOLUME 9.6 FL (7.4-10.4); MONOCYTES # (AUTO) 0.4 X 10^3 (0.0-1.0); MONOCYTES % (AUTO) 14 % (0-12); NEUTROPHILS # (AUTO) 1.3 X 10^3 (1.8-7.8); NEUTROPHILS % (AUTO) 41 % (42-75); PLATELET COUNT 136 10^3/uL (130-400); RED CELL DISTRIBUTION WIDTH 17.4 % (10.0-14.5)
[2020-01-09 06:45] LABS: BUN/CREATININE RATIO 12; CALCIUM 8.9 MG/DL (8.5-10.1); CARBON DIOXIDE 26 MMOL/L (21-32); CHLORIDE 102 MMOL/L (98-107); CREATININE SERUM 0.73 MG/DL (0.60-1.30); GFR ESTIMATED > 60; GLUCOSE 98 MG/DL (70-105); POTASSIUM 3.5 MMOL/L (3.6-5.0); SODIUM 140 MMOL/L (135-145)
[2020-01-09 08:06] VITALS: BP 101/62
[2020-01-09] MEDS ORDERED: POTASSIUM CL 10MEQ/50ML IVPB 50 ML IV NR (08:30)
[2020-01-09] MEDS: CIPROFLOXACIN IV 400MG/200ML 200 ML IV SCH (10:18)
[2020-01-09] MEDS: SUCRALFATE 1 GM (CARAFATE) TAB PO SCH ×3 (10:18→17:12)
[2020-01-09] MEDS: PANTOPRAZOLE 40 MG (PROTONIX) VIAL IV SCH (10:18)
[2020-01-09] MEDS: LEVETIRACETAM 1,000 MG (KEPPRA) TABLET PO SCH (10:18)
[2020-01-09] MEDS: MAGNESIUM 1 GM/100 ML IVPB 100 ML IV SCH ×2 (10:19→10:21)
[2020-01-09] MEDS: FAMOTIDINE 20MG/2ML IV (PEPCID) IV SCH (10:27)
[2020-01-09 12:00] VITALS: BP 96/52
[2020-01-10] MEDS ORDERED: POTASSIUM CL 10MEQ/50ML IVPB 50 ML IV SCH (06:00)
[2020-01-10] MEDS ORDERED: KCL 20 MEQ TAB (K-DUR) PO SCH (06:00)
[2020-01-10] MEDS ORDERED: MAGNESIUM 1 GM/100 ML IVPB 100 ML IV SCH (06:00)
== END 2020-01-09 18:30 | disposition home or self-care (01) | DRG 378 ==
LOC: EDUNIT# 01:29 → ER 01:33 → ICU 03:15 → 4TH 14:44
PROVIDERS: ADMIT Surgery; ATTEND Surgery
PROC: 0DB68ZX Excision of Stomach, Via Natural or Artificial Opening Endoscopic, Diagnostic (ICD-10-PCS; 2020-01-07)
PROC: 0W3P8ZZ Control Bleeding in Gastrointestinal Tract, Via Natural or Artificial Opening Endoscopic (ICD-10-PCS; principal; 2020-01-07 11:00)
DX: K25.4 Chronic or unspecified gastric ulcer with hemorrhage (principal); D62 Acute posthemorrhagic anemia; K21.0 Gastro-esophageal reflux disease with esophagitis; N25.89 Other disorders resulting from impaired renal tubular function; K44.9 Diaphragmatic hernia without obstruction or gangrene; F32.9 Major depressive disorder, single episode, unspecified; G52.2 Disorders of vagus nerve; Z87.11 Personal history of peptic ulcer disease; Z86.711 Personal history of pulmonary embolism; Z98.890 Other specified postprocedural states; Z95.828 Presence of other vascular implants and grafts; Z86.73 Personal history of transient ischemic attack (TIA), and cerebral infarction without residual deficits
CPT/HCPCS: 36415; 74176; 80048; 80053; 83690; 83735; 84100; 84703; 85014; 85018; 85025; 85610; 85730; 86850; 86900; 86901; 86920; 87081; 87635; 88305; 88342; 96374; 96375